=== PATIENT | female | born 1995 | race Two or more races ===

== ENCOUNTER 2024-01-06 06:27 | Emergency (ER) | payer OTHER ==
[~2024-01-06] VITALS: Ht 172.7 cm; Wt 62.4 kg
[2024-01-06 07:01] VITALS: PULSE 97; RESP 15; O2SAT 97
[2024-01-06] MEDS: CLINDAMYCIN 900MG IV 50 ML IV ONE (07:12)
[2024-01-06] MEDS: SODIUM CHLORIDE 0.9% 1,000 ML IV ONE (07:13)
[2024-01-06] MEDS: ONDANSETRON HCL 4 MG/2 ML VIAL IV ONE ×2 (07:13→09:51)
[2024-01-06] MEDS: KETOROLAC TROMETH 30 MG/ML 1ML VIAL IV ONE (07:14)
[2024-01-06 07:22] LABS: Basophils # (auto) 0 10 ^3/uL (0-0.2); Basophils % (auto) 0.1 % (0.0-2.0); Eosinophils # (auto) 0 10 ^3/uL (0-0.8); Eosinophils % (auto) 0.1 % (0.0-7.0); Hematocrit 36.3 % (36.0-46.0); Hemoglobin 12.6 g/dL (12.2-16.2); Lymphocytes % (auto) 4.9 % (10.0-50.0); Mean Corpuscular Hemoglobin 32.2 pg (28.0-32.0); Mean Corpuscular Hgb Conc. 34.7 g/dL (32.0-36.0); Mean Corpuscular Volume 92.7 fL (80.0-100.0); Monocytes # (auto) 0.8 10 ^3/uL (0-1.3); Monocytes % (auto) 3.7 % (0.0-12.0); Neutrophils # (auto) 19.3 10 ^3/uL (1.6-8.6); Neutrophils % (auto) 91.2 % (37.0-80.0); Red Blood Cells 3.91 10^6/uL (4.0-5.20); Red Cell Distribution Width 12.5 % (11.8-14.3); White Blood Cell 21.1 10^3/uL (4.4-10.8)
[2024-01-06 07:37] LABS: Alanine Aminotransferase 19 U/L (7-40); Alkaline Phosphatase 81 U/L (46-116); Anion Gap 6 (5-15); Aspartate Aminotransferase 15 U/L (13-40); Calcium 9.4 mg/dL (8.7-10.4); Carbon Dioxide 28 mmol/L (20-30); Chloride 103 mmol/L (98-107); Glucose 101 mg/dL (74-106); Magnesium 1.5 mg/dL (1.6-2.6); Sodium 137 mmol/L (136-145)
[2024-01-06 07:38] LABS: Bilirubin, Total 0.7 mg/dL (0.2-1.0); Total Protein 6.8 g/dL (5.7-8.2)
[2024-01-06 07:40] LABS: BUN/Creatinine Ratio 8.3 (10.0-20.0); Blood Urea Nitrogen < 5 mg/dL (9-23)
[2024-01-06 08:16] VITALS: PULSE 120; RESP 20; O2SAT 97
[2024-01-06] MEDS: IOHEXOL 300 MG/ML 100ML BOTTLE IJ ONE (08:23)
[2024-01-06] MEDS ORDERED: PIPERACILLIN-TAZOB 3.375GM 100 ML IV ONE (09:00)
[2024-01-06] MEDS: SODIUM CHLORIDE 0.9% 1,900 ML IV ONE (09:00)
[2024-01-06] MEDS: HYDROmorphone HCL 2 MG/ML VL/or syr IV ONE (09:52)
[2024-01-06] MEDS: VANCOMYCIN 1GM/200ML 200 ML IV ONE (10:12)
[2024-01-06 10:55] VITALS: BP 109/72; PULSE 111; RESP 12; TEMP 98; O2SAT 98
[2024-01-06] MEDS: diphenhdrAMINE HCL 50 MG/1 ML VL IV ONE (11:08)
[2024-01-06] MEDS: diphenhdrAMINE HCL 50 MG/1 ML VL ONE (11:09)
== END 2024-01-06 11:19 | disposition short-term general hospital (02) ==
LOC: ER 06:27
DX: A41.9 Sepsis, unspecified organism (principal); K04.7 Periapical abscess without sinus; J39.1 Other abscess of pharynx; M60.009 Infective myositis, unspecified site; Z79.899 Other long term (current) drug therapy
CPT/HCPCS: 36415; 70491; 80053; 83605; 83735; 85025; 87040; 96361; 96365; 96367; 96375; 96376; 99285; J1170; J1200; J1885; J2405; J3370; J3490; J7030; Q9967; J2543